=== PATIENT | male | born 2000 | race Caucasian/White ===

== ENCOUNTER → 2024-09-04 10:22 | Outpatient (REF) | payer OTHER, SELFPAY ==
[2024-09-04 15:02] LABS: Mumps Virus IgG Positive; Rubeola (Measles) IgG Positive; Varicella Zoster IgG (VZV) Positive
[2024-09-04 21:18] LABS: Rubella Positive
[2024-09-06 00:52] LABS: Quantiferon Mitogen minus NIL 9.95 IU/mL; Quantiferon NIL 0.05 IU/mL; Quantiferon TB Gold Plus Negative (Negative)
== END ==
LOC: OHS 10:22
PROVIDERS: ATTENDING PHYSICIAN Nurse Practitioner Family
DX: Z23 Encounter for immunization (principal)
CPT/HCPCS: 36415; 86480; 86735; 86762; 86765; 86787